=== PATIENT | male | born 1990 | race African-American/Black ===

== ENCOUNTER 2022-12-23 22:17 | Emergency (ER) | payer OTHER ==
[2022-12-23 22:36] VITALS: BP 145/65; PULSE 90; RESP 16; TEMP 98.3; BMI 23.6
== END 2022-12-24 00:02 | disposition home or self-care (01) ==
LOC: FER 22:17
DX: S83.31XA Tear of articular cartilage of right knee, current, initial encounter (principal); M25.561 Pain in right knee; X58.XXXA Exposure to other specified factors, initial encounter; Y93.67 Activity, basketball
CPT/HCPCS: 73562-TC-RT-FY; 99283-25

== ENCOUNTER 2023-01-15 09:07 | Emergency (ER) | payer OTHER ==
[2023-01-15 09:25] VITALS: BP 149/97; PULSE 67; RESP 18; TEMP 98; BMI 24.3
[2023-01-15] MEDS ORDERED: IBUPROFEN 400 MG TABLET (FP) PO ONE ×2 (09:31→09:33)
== END 2023-01-15 10:40 | disposition home or self-care (01) ==
LOC: FER 09:07
DX: S80.911A Unspecified superficial injury of right knee, initial encounter (principal); M25.561 Pain in right knee; W01.0XXA Fall on same level from slipping, tripping and stumbling without subsequent striking against object, initial encounter; Y93.01 Activity, walking, marching and hiking; Y92.009 Unspecified place in unspecified non-institutional (private) residence as the place of occurrence of the external cause
CPT/HCPCS: 73562-TC-RT-FY; 73590-TC-RT-FY; 99283-25